=== PATIENT | female | born 1970 | race Caucasian/White ===

== ENCOUNTER 2017-07-30 10:48 | Emergency (ER) | payer OTHER ==
[~2017-07-30] VITALS: Ht 157.5 cm; Wt 68.0 kg
[2017-07-30] MEDS ORDERED: FAMOTIDINE 20 MG/2 ML VIAL IV STA (11:11)
[2017-07-30] MEDS ORDERED: METHYLPREDNISOLONE SOD SUCC 125 MG/2ML VIAL IV ONE (11:15)
[2017-07-30] MEDS ORDERED: DIPHENHYDRAMINE HCL INJ 50 MG/ML VIAL IV ONE (11:15)
[2017-07-30 12:20] VITALS: BP 113/66
== END 2017-07-30 12:26 | disposition home or self-care (01) ==
LOC: ER 10:48
DX: L23.7 Allergic contact dermatitis due to plants, except food (principal)
CPT/HCPCS: 99283; J1200; J2930